=== PATIENT | female | born 1970 | race Caucasian/White ===

== ENCOUNTER 2018-06-22 08:37 | Emergency (ER) | payer OTHER ==
[2018-06-22 09:08] VITALS: BP 141/93
--- NOTE | 2018-06-22 09:46 | Emergency Department Report ---
ED Headache HPI - General Chief Complaint: Headache Stated Complaint: MALI,HEADACHE Time Seen by Provider: 06/22/18 09:32 Source: patient Exam Limitations: no limitations - History of Present Illness Initial Comments: 47-year-old female reports left-sided headache since last night. Patient reports nausea, no vomiting. Patient reports chills, no fever. She denies sore throat, cough. States that she awoke this morning she had a brief episode of shortness of breath that has since resolved. She denies chest pain. States she took ibuprofen which provided mild relief of the headache. Patient reported last menstrual period was this week Timing/Duration: other (began last night) Quality: moderate Recent Head Trauma: no recent headache/trauma, occasional headaches Modifying Factors: improves with: medication (ibuprofen) Associated Symptoms: fever/chills, nausea/vomiting. denies: nasal congestion Allergies/Adverse Reactions: Allergies No Known Allergies Allergy (Unverified 06/22/18 09:08) Home Medications: Ambulatory Orders Butalb/Acetamin/Caff 50-325-40 [Fioricet] 1 tab PO Q6HR PRN #10 tab 06/22/18 ED Review of Systems ROS: Stated complaint: MAIL,HEADACHE Other details as noted in HPI Comment: All other systems reviewed and negative Constitutional: chills. denies: fever ENT: denies: throat pain Respiratory: shortness of breath. denies: cough Cardiovascular: denies: chest pain Gastrointestinal: nausea. denies: abdominal pain, vomiting Genitourinary: denies: abnormal menses Neurological: headache. denies: weakness, numbness ED Past Medical Hx - Past Medical History Previous Medical History?: No - Surgical History Past Surgical History?: No - Social History Smoking Status: Never Smoker Substance Use Type: None - Medications Home Medications: Home Medications Medication Instructions Recorded Confirmed Last Taken Type Butalb/Acetamin/Caff 50-325-40 1 tab PO Q6HR PRN #10 tab 06/22/18 Unknown Rx [Fioricet] ED Physical Exam - General Limitations: No Limitations General appearance: alert, in no apparent distress - Head Head exam: Present: atraumatic, normocephalic - Eye Eye exam: Present: normal appearance, PERRL, EOMI - ENT ENT exam: Present: mucous membranes moist - Neck Neck exam: Present: normal inspection, full ROM. Absent: tenderness, meningismus - Respiratory Respiratory exam: Present: normal lung sounds bilaterally. Absent: respiratory distress - Cardiovascular Cardiovascular Exam: Present: normal rhythm, tachycardia (slightly tachycardic) - GI/Abdominal GI/Abdominal exam: Present: soft. Absent: tenderness - Extremities Exam Extremities exam: Present: normal inspection - Neurological Exam Neurological exam: Present: alert, oriented X3, CN II-XII intact, normal gait. Absent: motor sensory deficit - Psychiatric Psychiatric exam: Present: normal affect, normal mood - Skin Skin exam: Present: warm, dry, intact, normal color. Absent: rash ED Course Vital Signs 06/22/18 09:06 Temperature 98.1 F Pulse Rate 103 H Respiratory 16 Rate Blood Pressure 141/93 O2 Sat by Pulse 98 Oximetry ED Medical Decision Making - Medical Decision Making 47-year-old female with left-sided headache since last name. Is mildly relieved with ibuprofen. Patient has normal neuro exam. Reported shortness of breath which has since resolved. She denies joint distress, lungs are clear, O2 sats normal. Will give prescription for Fioricet. Return precautions given. - Differential Diagnosis tension headache, viral illness, migraine HAYNES Critical care attestation.: If time is entered above; I have spent that time in minutes in the direct care of this critically ill patient, excluding procedure time. ED Disposition Clinical Impression: Acute headache Disposition: TO HOME OR SELFCARE Is pt being admited?: No Condition: Stable Instructions: Tension Headache (ED), Acute Headache (ED) Prescriptions: Butalb/Acetamin/Caff 50-325-40 [Fioricet] 1 tab PO Q6HR PRN #10 tab PRN Reason: Headache Referrals: PRIMARY CARE, [Primary Care Provider] - 3-5 Days Time of Disposition: 09:45
== END 2018-06-22 09:49 | disposition home or self-care (01) ==
LOC: ED 08:37
DX: R51 Headache (principal)
CPT/HCPCS: 99282

== ENCOUNTER 2019-03-13 15:07 | Emergency (ER) | payer OTHER ==
[2019-03-13] MEDS ORDERED: MAGNESIUM SULFATE 2GM/50ML 2 GM/50 ML BAG IV ONE (17:01)
[2019-03-13] MEDS ORDERED: SOLU-Medrol IV ONE (17:01)
[2019-03-13] MEDS ORDERED: REGLAN IV ONE (17:01)
[2019-03-13] MEDS ORDERED: XYLOCAINE TOPICAL 4% TP ONE (17:01)
--- NOTE | 2019-03-13 17:02 | Emergency Department Report ---
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 This patient is not known to this provider previously. Patient may have a history of diabetes. Patient presents to the ER with a complaint of headache and possible loss of consciousness. 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 Patient reports that while working a hot warehouse yesterday, she had a mild headache. The headache did not respond so intensity within an hour. She then reports that this morning, at 7:30, she again started to work and a very hot warehouse without adequate air conditioning or ventilation. She reports that she began to feel hot, she began to feel a headache again. The headache is described as frontal and bitemporal and occipital. The occipital aspect of the headache is described as a sensation of "heavy." The patient indicates the headache has been constant and throbbing, it did not reach maximal intensity within an hour, it is now the most intense. The patient reports that she went outside, and that she may have lost consciousness. She indicates that she felt dizzy, but she has difficulty describing the nature of her dizziness. The patient denies DVT, pulmonary embolus risk factors. The patient indicates no family history of DVT or pulmonary embolus in that she is aware of. She does not think that anyone her family has any significant medical history. She denies midline neck pain, chest pain, abdominal pain, shortness of breath, e xtremity weakness, extremity numbness. The headache has basically been constant, and so far, appears to be getting worse after she thinks that she fell on her head. -: Gradual, Sudden Location: head Radiation: other (frontal, bitemporal, and occipital) Quality: other (described as pressure and heavy) Consistency: constant Improves with: none Worsens with: none - Related Data Previous Rx's Medication Instructions Recorded Last Taken Type Butalb/Acetamin/Caff 50-325-40 1 tab PO Q6HR PRN #10 tab 06/22/18 Unknown Rx [Fioricet] Acetaminophen [Non-Aspirin Extra 500 mg PO Q6HR PRN #30 tablet 03/13/19 Unknown Rx Strength] Metoclopramide [Reglan] 10 mg PO QID PRN #20 tab 03/13/19 Unknown Rx Allergies Allergy/AdvReac Type Severity Reaction Status Date / Time No Known Allergies Allergy Unverified 06/22/18 09:08 ED Review of Systems ROS: Stated complaint: SYNCOPE Other details as noted in HPI Constitutional: denies: fever Eyes: denies: eye discharge ENT: denies: epistaxis Respiratory: denies: cough Cardiovascular: syncope Gastrointestinal: denies: vomiting Genitourinary: denies: dysuria Musculoskeletal: denies: back pain Skin: denies: lesions Neurological: headache Psychiatric: anxiety Hematological/Lymphatic: denies: easy bleeding ED Past Medical Hx - Past Medical History Previous Medical History?: No Hx Diabetes: Yes (unoffically Dx) - Surgical History Past Surgical History?: No Additional Surgical History: - Social History Smoking Status: Never Smoker - Medications Home Medications: Home Medications Medication Instructions Recorded Confirmed Last Taken Type Butalb/Acetamin/Caff 50-325-40 1 tab PO Q6HR PRN #10 tab 06/22/18 Unknown Rx [Fioricet] Acetaminophen [Non-Aspirin Extra 500 mg PO Q6HR PRN #30 tablet 03/13/19 Unknown Rx Strength] Metoclopramide [Reglan] 10 mg PO QID PRN #20 tab 03/13/19 Unknown Rx ED Physical Exam - General Limitations: Language Barrier General appearance: alert, in no apparent distress - Head Head exam: Present: atraumatic, normocephalic - Eye Eye exam: Present: normal appearance, PERRL, EOMI. Absent: nystagmus - ENT ENT exam: Present: normal exam, normal orophraynx, mucous membranes moist, normal external ear exam - Neck Neck exam: Present: normal inspection, full ROM. Absent: tenderness, meningis mus - Respiratory Respiratory exam: Present: normal lung sounds bilaterally. Absent: respiratory distress - Cardiovascular Cardiovascular Exam: Present: regular rate, normal rhythm, normal heart sounds. Absent: bradycardia, tachycardia, irregular rhythm, systolic murmur, diastolic murmur, rubs, gallop - GI/Abdominal GI/Abdominal exam: Present: soft. Absent: distended, tenderness, guarding, rebound, rigid, pulsatile mass - Extremities Exam Extremities exam: Present: normal inspection, full ROM, other (2+ pulses noted in the bilateral upper, lower extremities. Compartments soft. No long bony tenderness. The pelvis is stable.). Absent: pedal edema, joint swelling, calf tenderness - Back Exam Back exam: Present: normal inspection, full ROM. Absent: tenderness, CVA tenderness (R), CVA tenderness (L), paraspinal tenderness, vertebral tenderness - Neurological Exam Neurological exam: Present: alert (there is no past-pointing. There is normal [id number]. There is negative drift. There is negative pronator drift.), oriented X3, normal gait, other (Extraocular movements intact. Tongue midline. No facial droop. Facial sensation intact to light touch in the V1, V2, V3 distribution bilaterally. 5 and 5 strength in 4 extremities.. Sensation is intact to light touch in 4 extremities.). Absent: motor sensory deficit - Psychiatric Psychiatric exam: Present: anxious - Skin Skin exam: Present: warm, dry, intact, normal color. Absent: rash ED Course Vital Signs 03/13/19 03/13/19 03/13/19 15:32 16:51 18:20 Temperature 98.4 F Pulse Rate 99 H 74 69 Respiratory 18 18 17 Rate Blood Pressure 140/76 Blood Pressure 134/65 130/80 [Right] O2 Sat by Pulse 100 99 100 Oximetry - Reevaluation(s) Reevaluation #1: 03/13/19 17:55 Differential diagnosis, including but not limited to: Heat exhaustion, concussion, postconcussive headache, posttraumatic headache, intracranial hemorrhage, orthostasis, vagal event, structural cardiac disease, pulmonary em bolism Assessment and plan: 48-year-old female who reports being in her usual state of health up until yesterday, when she began working in a very hot outside warehouse. While working in the hot warehouse, she began to have a headache. The headache appears to have gotten worse today, the headache is not sudden or thunderclap in nature, the headache is not maximal in intensity at onset, and the headache did not immediately proceed loss of consciousness. She thinks that she likely hit her head. Suspect heat exhaustion as likely etiology, with postconcussive/posttraumatic headache. However, given right bundle branch block without prior EKG for comparison, d-dimer sent, elevated, and while the patient is low risk by well's criteria, and perc negative, given EKG findings and history, a CT scan of the chest will be obtained to exclude a pulmonary embolus we will treat the patient's headache supportively and symptomatically. Reevaluation #2: 03/13/19 20:09 CT scan of the brain is negative. CT scan of the chest negative for acute disease. EKG unchanged 2. Troponin negative 2. Repeat neurologic examination unremarkable and unchanged. Patient endorses that she feels improved. Patient may follow up with an outpatient primary care doctor for incidental findings on CT scan. ED Medical Decision Making - Lab Data Result diagrams: 03/13/19 Unknown 03/13/19 Unknown Vital Signs 03/13/19 03/13/19 15:32 16:51 Temperature 98.4 F Pulse Rate 99 H 74 Respiratory 18 18 Rate Blood Pressure 140/76 Blood Pressure 134/65 [Right] O2 Sat by Pulse 100 99 Oximetry Lab Results 03/13/19 03/13/19 03/13/19 Range/Units Unknown Unknown Unknown WBC 6.0 (4.5-11.0) K/mm3 RBC 4.72 (3.65-5.03) M/mm3 Hgb 13.5 (10.1-14.3) gm/dl Hct 40.4 (30.3-42.9) % MCV 86 (79-97) fl MCH 29 (28-32) pg MCHC 34 (30-34) % RDW 15.5 H (13.2-15.2) % Plt Count 182 (140-440) K/mm3 Lymph % (Auto) 25.6 (13.4-35.0) % Forest % (Auto) 5.4 (0.0-7.3) % Eos % (Auto) 1.1 (0.0-4.3) % Baso % (Auto) 0.7 (0.0-1.8) % Lymph # 1.5 (1.2-5.4) K/mm3 Forest # 0.3 (0.0-0.8) K/mm3 Eos # 0.1 (0.0-0.4) K/mm3 Baso # 0.0 (0.0-0.1) K/mm3 Seg Neutrophils % 67.2 (40.0-70.0) % Seg Neutrophils # 4.0 (1.8-7.7) K/mm3 PT 12.8 (12.2-14.9) Sec. INR 0.99 (0.87-1.13) APTT 20.6 L (24.2-36.6) Sec. D-Dimer 244.76 H (0-234) ng/mlDDU Sodium 134 L (137-145) mmol/L Potassium 3.8 (3.6-5.0) mmol/L Chloride 99.8 (98-107) mmol/L Carbon Dioxide 24 (22-30) mmol/L Anion Gap 14 mmol/L BUN 9 (7-17) mg/dL Creatinine 0.6 L (0.7-1.2) mg/dL Estimated GFR > 60 ml/min BUN/Creatinine Ratio 15 % Glucose 355 H (65-100) mg/dL Calcium 9.7 (8.4-10.2) mg/dL Magnesium (1.7-2.3) mg/dL Total Bilirubin 0.30 (0.1-1.2) mg/dL AST 76 H (5-40) units/L ALT 108 H (7-56) units/L Alkaline Phosphatase 99 (35-129) units/L Troponin T < 0.010 (0.00-0.029) ng/mL Total Protein 7.1 (6.3-8.2) g/dL Albumin 3.8 L (3.9-5) g/dL Albumin/Globulin Ratio 1.2 % HCG, Quant (0-4) mIU/mL 03/13/19 03/13/19 Range/Units Unknown Unknown WBC (4.5-11.0) K/mm3 RBC (3.65-5.03) M/mm3 Hgb (10.1-14.3) gm/dl Hct (30.3-42.9) % MCV (79-97) fl MCH (28-32) pg MCHC (30-34) % RDW (13.2-15.2) % Plt Count (140-440) K/mm3 Lymph % (Auto) (13.4-35.0) % Forest % (Auto) (0.0-7.3) % Eos % (Auto) (0.0-4.3) % Baso % (Auto) (0.0-1.8) % Lymph # (1.2-5.4) K/mm3 [place] # (0.0-0.8) K/mm3 Eos # (0.0-0.4) K/mm3 Baso # (0.0-0.1) K/mm3 Seg Neutrophils % (40.0-70.0) % Seg Neutrophils # (1.8-7.7) K/mm3 PT (12.2-14.9) Sec. INR (0.87-1.13) APTT (24.2-36.6) Sec. D-Dimer (0-234) ng/mlDDU Sodium (137-145) mmol/L Potassium (3.6-5.0) mmol/L Chloride (98-107) mmol/L Carbon Dioxide (22-30) mmol/L Anion Gap mmol/L BUN (7-17) mg/dL Creatinine (0.7-1.2) mg/dL Estimated GFR ml/min BUN/Creatinine Ratio % Glucose (65-100) mg/dL Calcium (8.4-10.2) mg/dL Magnesium 1.90 (1.7-2.3) mg/dL Total Bilirubin (0.1-1.2) mg/dL AST (5-40) units/L ALT (7-56) units/L Alkaline Phosphatase (35-129) units/L Troponin T (0.00-0.029) ng/mL Total Protein (6.3-8.2) g/dL Albumin (3.9-5) g/dL Albumin/Globulin Ratio % HCG, Quant < 2 (0-4) mIU/mL Critical care attestation.: If time is entered above; I have spent that time in minutes in the direct care of this critically ill patient, excluding procedure time. ED Disposition Clinical Impression: Abnormal EKG, Hyperglycemia, History of syncope Disposition: TO HOME OR SELFCARE Is pt being admited?: No Does the pt Need Aspirin: No Condition: Stable Instructions: Syncope (ED) Additional Instructions: Do not drive or operate motor vehicles for the next 6 months. Take a headache medication, nausea medication as needed/directed. Follow up with a primary care doctor for high blood sugar and repeat checkup/evaluation within the next 7-10 days. Follow up with a composition teacher for abnormal EKG and loss of consciousness within the next 7-10 days. Participate in physical activities as tolerated, recommend aggressive weight loss, and avoid consumption of foods that are high in sugar and simple carbohydrates. When working in the heat, make certain to have access to air conditioning and adequate ventilation. Return to the emergency room right away with new, worsened or different symptoms not present on the initial emergency room evaluation. Patient likely has a concussion, and symptoms of concussion a last 4 days, weeks, or even months. Symptoms of concussion including headache, fogginess, dizziness, forgetfulness, sensitivity to light, sensitivity to sound. Please avoid contact sports and contact athletics. CT scan of the of the chest showed nonspecific lung nodules were seen to be followed up by her primary care doctor within the next 4-6 weeks. Not following up as recommended may result in an undiagnosed tumor, cancer, malignancy. Drink 4-6 cups of water per day for the next 7 days. Please follow up with a primary care doctor within the next 4-6 weeks for high blood sugar level. No conduzca ni opere vehculos motorizados ari los prximos 6 meses. [place] un medicamento para el dolor de isaura, un medicamento para las nuseas segn sea necesario / indicado. [place] un seguimiento con un mdico de atencin primaria para el nivel alto de azcar en la williams y repita el control / evaluacin dentro de los prximos 7 a 10 noble. [place] un seguimiento con un cardilogo para detectar un ECG anormal y prdida de conciencia en los prximos 7 a 10 noble. Participe en actividades fsicas segn lo tolere, recomiende gabi prdida de peso agresiva y evite el consumo de alimentos con alto contenido de azcar y carbohidratos simples. Cuando trabaje en el calor, asegrese de tener acceso a aire acondicionado y ventilacin adecuada. Regrese a la tenzin de emergencias de inmediato con sntomas nuevos, empeorados o diferentes que no aparecen en la evaluacin inicial de la tenzin de emergencias. Es probable que el paciente tenga gabi conmocin cerebral y sntomas de conmocin cerebral ari los ltimos 4 noble, semanas o incluso meses. Los sntomas de conmocin cerebral incluyen dolor de isaura, sharath, mareos, falta de memoria, sensibilidad a la bebeto, sensibilidad al chaim. Por favor, evite los deportes de contacto y el atletismo de contacto. La tomografa computarizada del trax mostr que kwon mdico de atencin primaria realiz el seguimiento de ndulos pulmonares inespecficos en las prximas 4 a 6 semanas. No seguir las recomendaciones segn lo recomendado puede resultar en un tumor no diagnosticado, cncer, malignidad. [place] 4-6 tazas de agua por da ari los prximos 7 noble. Por favor, clyde un seguimiento con un mdico de atencin primaria dentro de las siguientes 4 a 6 semanas para un nivel alto de azcar en la williams. Prescriptions: Acetaminophen [Non-Aspirin Extra Strength] 500 mg PO Q6HR PRN #30 tablet PRN Reason: Pain , Severe (7-10) Metoclopramide [Reglan] 10 mg PO QID PRN #20 tab PRN Reason: Headache Referrals: [facility] [Provider Group] - 3-5 Days [facility] [Provider Group] - 3-5 Days
[2019-03-13] MEDS ORDERED: NACL 0.9% 1000 ML 1,000 ML IV ONE (17:03)
[2019-03-13 17:10] LABS: Basophils % (Auto) 0.7 % (0.0-1.8); Eosinophils # (Auto) 0.1 K/mm3 (0.0-0.4); Eosinophils % (Auto) 1.1 % (0.0-4.3); Hematocrit 40.4 % (30.3-42.9); Hemoglobin 13.5 gm/dl (10.1-14.3); Lymphocytes # (Auto) 1.5 K/mm3 (1.2-5.4); Lymphocytes % (Auto) 25.6 % (13.4-35.0); Mean Corpuscular HGB Conc 34 % (30-34); Mean Corpuscular Volume 86 fl (79-97); Monocytes # (Auto) 0.3 K/mm3 (0.0-0.8); Monocytes % (Auto) 5.4 % (0.0-7.3); Platelet Count 182 K/mm3 (140-440); Red Blood Count 4.72 M/mm3 (3.65-5.03); Red Cell Distribution Width 15.5 % (13.2-15.2)
[2019-03-13 17:39] LABS: INR 0.99 (0.87-1.13); Partial Thromboplastin Time 20.6 Sec. (24.2-36.6)
[2019-03-13 17:40] LABS: Alanine Aminotransferase 108 units/L (7-56); Albumin 3.8 g/dL (3.9-5); BUN/Creatinine Ratio 15; Blood Urea Nitrogen 9 mg/dL (7-17); Calcium 9.7 mg/dL (8.4-10.2); Hemolysis Index 22
[2019-03-13] MEDS ORDERED: FIORICET PO ONE (17:51)
[2019-03-13] MEDS ORDERED: HumuLIN R IV ONE (17:58)
--- NOTE | 2019-03-13 19:25 | Cat Scan Report ---
CT head/brain wo con INDICATION: syncope head trauma concussion headache. 48-year-old female TECHNIQUE: Routine CT head without contrast. All CT scans at this location are performed using CT dos e reduction for ALARA by means of automated exposure control. COMPARISON: None. FINDINGS: BRAIN / INTRACRANIAL CONTENTS: No acute hemorrhage, mass effect, midline shift, hydrocephalus, or acu te, large territorial infarct. No chronic infarct or focal atrophy. Normal brain volume and ventricul ar/sulcal size for age. No significant white matter abnormality. CRANIOCERVICAL JUNCTION: No significant abnormality. ORBITS: No significant abnormality of visualized orbits. SINUSES / MASTOIDS: No significant abnormality of the visualized paranasal sinuses or mastoid air mayela ls. ADDITIONAL FINDINGS: None. IMPRESSION: 1. No focal mass, hemorrhage, hydrocephalus, or acute, large territorial infarct. Signer Name: Agustín Connor MD, III Signed: 03/13/2019 7:21 PM Workstation Name: [id number]
--- NOTE | 2019-03-13 19:29 | Cat Scan Report ---
CTA chest with contrast INDICATION : syncope rbbb pe, syncope head trauma concussion headache, fainted around 1pm today, diz ziness and lightheaded. TECHNIQUE: Axial imaging performed through the chest, with contrast bolus timing set to maximize opa cification of the pulmonary arteries. 3-plane MIP reformatted images were obtained. All CT scans at this location are performed using CT dose reduction for ALARA by means of automated exposure control. 100 mL of intravenous contrast administered. COMPARISON: None FINDINGS: Bolus: Contrast bolus timing is adequate. PTE: No filling defect is present to suggest PTE. Mediastinum: Heart and great vessels appear normal. No pathologic mediastinal adenopathy. Lungs: There is a 3 mm pleural-based nodule in the left lower lobe on image #55 of series #5. Lungs are otherwise clear. Upper abdomen: Limited imaging of the upper abdomen shows nothing acute. There is moderate hepatic steatosis. Bones: Degenerative changes in the spine with nothing acute. IMPRESSION: 1. Negative for PTE. 2. Tiny pulmonary nodule as above. Please see below recommendations. The lungs are otherwise clear. 3. Moderate hepatic steatosis. INCIDENTAL PULMONARY NODULE RECOMMENDATIONS Solid Nodule size <6 mm -- Single or Multiple - Low Risk Patient: No routine follow-up - High Risk Patient: Optional CT at 12 months Note These recommendations do not apply to lung cancer screening, patients with immunosuppression, o r patients with known primary cancer. Note Newly detected indeterminate nodule in persons 35 years of age or older. Persons under the age of 35 should not receive follow-up unless there is a known primary cancer. Low Risk Patient -- minimal or absent history of smoking and of other known risk factors. High Risk Patient -- history of smoking or of other known risk factors. Nodule dimensions are average of long and short axes, rounded to the nearest millimeter. Based on 2017 Fleischner Society Guidelines found in Radiology 2017 284:228-243. [email or web address] Signer Name: Joaquin Glass MD Signed: 03/13/2019 7:24 PM Workstation Name: [id number]
[2019-03-13 23:12] VITALS: BP 133/68
== END 2019-03-13 20:15 | disposition home or self-care (01) ==
LOC: ED 15:07
DX: E11.65 Type 2 diabetes mellitus with hyperglycemia (principal); R94.31 Abnormal electrocardiogram [ECG] [EKG]; R55 Syncope and collapse; F41.9 Anxiety disorder, unspecified; Z79.899 Other long term (current) drug therapy
CPT/HCPCS: 36415; 70450; 71275; 80053; 82550; 82962; 83735; 84484; 84702; 85025; 85379; 85610; 85730; 93005; 93010; 96365; 96375; 99285; J2765; J2930; J3475; J7030; Q9967